=== PATIENT | male | born 1995 | race Caucasian/White ===

== ENCOUNTER → 2017-07-24 | Outpatient (CLI) | payer BC ==
--- NOTE | 2017-07-24 09:21 | RADIOLOGY IMAGING REPORT ---
FACILITY: [facility] - [place] PATIENT NAME: Dylan Price : 1995 MR: [id number] V: [id number] EXAM DATE: ORDERING PHYSICIAN: CHESTER HAYWOOD TECHNOLOGIST: Location: [facility] Patient: Dylan Price : 1995 Visit/Account:[id number] Date of Sevice: 07/24/2017 TESTICULAR ultrasound HISTORY: Varicocele COMPARISON: None FINDINGS: Right testicle: 4.1 x 2.3 x 3.8 cm. Normal echogenicity and vascularity. No testicular mass. Left testicle: 3.6 x 2.0 x 3.1 cm. Normal echogenicity and vascularity. No testicular mass. Epididymides: Unremarkable. Blood flow is unremarkable in each epididymis by color Doppler ultrasound . Hydrocele: None. Varicocele: Left varicocele with veins measuring up to 5-6 mm with increased flow with Valsalva Other findings: None significant IMPRESSION: 1. Left varicocele 2. Normal testicles and epididymis. Report Dictated By: Carloz Hays MD at 07/24/2017 9:02 AM Report E-Signed By: Carloz Hays MD at 07/24/2017 9:17 AM WSN:[id number]
== END ==
LOC: RAD 07:21
PROVIDERS: ATTEND Family Medicine
DX: I86.1 Scrotal varices (principal)
CPT/HCPCS: 36415; 76870; 84403

== ENCOUNTER 2017-08-22 08:35 | Day surgery (SDC) | payer BC ==
[~2017-08-22] VITALS: Ht 182.9 cm; Wt 74.8 kg
--- NOTE | 2017-08-22 08:41 | ER Report ---
History and Physical Time Seen By MD: 08:41 HPI/ROS CHIEF COMPLAINT: Right testicular pain HISTORY OF PRESENT ILLNESS: 22-year-old otherwise healthy male resents with Acute onset of right testicular pain O5 30 history of prior varicocele on the opposite side diagnosed by ultrasound 2 weeks ago. Denies prior operation. Denies prior torsion denies no and they'll clapper deformity. He noted his testicle seems elevated in the right scrotal area and is poking out to the side. He is concerned about a torsion. Severe pain enough to induce nausea at this time. Denies prior STD. States all prior testing has been negative. Denies prior epididymitis. REVIEW OF SYSTEMS: Constitutional: No fever, no chills. Eyes: No discharge. ENT: No sore throat. Cardiovascular: No chest pain, no palpitations. Respiratory: No cough, no shortness of breath. Gastrointestinal: No abdominal pain, no vomiting. Genitourinary: No hematuria. Musculoskeletal: No back pain. Skin: No rashes. Neurological: No headache. Allergies: Coded Allergies: amoxicillin (Verified Allergy, Intermediate, 08/22/17) clavulanic acid (Verified Allergy, Intermediate, 08/22/17) Penicillins (Verified Allergy, Unknown, RASH, 08/22/17) Home Meds No Active Prescriptions or Reported Meds Constitutional Vital Sign - Last 24 Hours 08/22/17 08/22/17 08/22/17 08/22/17 08:42 08:44 08:45 08:55 Temp 97.8 Pulse 69 71 73 Resp 16 B/P (MAP) 143/90 (107) 143/90 Pulse Ox 98 99 O2 Delivery Room Air 08/22/17 09:00 B/P (MAP) 139/90 (106) Physical Exam General Appearance: The patient is alert, has no immediate need for airway protection and no signs of toxicity. Acute distress due to pain Eyes: Pupils equal and round no pallor or injection. ENT, Mouth: Mucous membranes are moist. Respiratory: There are no retractions, lungs are clear to auscultation. Cardiovascular: Regular rate and rhythm. No murmurs gallops or rubs Gastrointestinal: Abdomen is soft and non tender, no masses, bowel sounds normal. : Scrotum contracted right testy tender to palpation posteriorly, horizontal lie appreciable, right spermatic cord appears swollen and tender to palpation anteriorly no discoloration appreciated left testicle normal. No discharge or blood from the meatus. Neurological: Normal Skin: Warm and dry, no rashes. Musculoskeletal: Neck is supple non tender. Extremities are nontender, nonswollen and have full range of motion. No edema DIFFERENTIAL DIAGNOSIS: After history and physical exam differential diagnosis was considered for testicular torsion epididymitis spermatocele varicocele orchitis this is an incomplete list of diagnoses considered Medical Decision Making Data Points Result Diagram: 08/22/17 0858 08/22/17 0858 Laboratory Hematology Test 08/22/17 08:41 08/22/17 08:58 Urine Color Yellow Urine Clarity Clear Urine pH 6.0 pH (4.8-9.5) Urine Specific [place] 1.024 Urine Protein Negative mg/dL (NEGATIVE) Urine Glucose (UA) Negative mg/dL (NEGATIVE) Urine Ketones Trace mg/dL (NEGATIVE) Urine Blood Negative (NEGATIVE) Urine Nitrite Negative (NEGATIVE) Urine Bilirubin Negative (NEGATIVE) Urine Urobilinogen Negative mg/dL (0.2-1.9) Urine Leukocyte Esterase Negative (NEGATIVE) Urine RBC None /HPF (0-2/HPF) Urine WBC <1 /HPF (0-5/HPF) Urine Squamous Epithelial Cells Few /LPF (</=FEW) Urine Bacteria Negative /HPF (NONE-FEW) Urine Mucus Few /HPF (NONE-FEW) Red Blood Count 5.90 M/uL (4.00-5.60) Mean Corpuscular Volume 87.1 fL (80.0-96.0) Mean Corpuscular Hemoglobin 30.0 pg (26.0-33.0) Mean Corpuscular Hemoglobin Concent 34.5 g/dL (32.0-36.0) Red Cell Distribution Width 13.2 % (11.5-14.5) Mean Platelet Volume 8.2 fL (7.2-11.1) Neutrophils (%) (Auto) 79.8 % (39.4-72.5) Lymphocytes (%) (Auto) 14.9 % (17.6-49.6) Monocytes (%) (Auto) 4.7 % (4.1-12.4) Eosinophils (%) (Auto) 0.2 % (0.4-6.7) Basophils (%) (Auto) 0.4 % (0.3-1.4) Nucleated RBC Relative Count (auto) 0.2 /100WBC Neutrophils # (Auto) 7.1 K/uL (2.0-7.4) Lymphocytes # (Auto) 1.3 K/uL (1.3-3.6) Monocytes # (Auto) 0.4 K/uL (0.3-1.0) Eosinophils # (Auto) 0.0 K/uL (0.0-0.5) Basophils # (Auto) 0.0 K/uL (0.0-0.1) Nucleated RBC Absolute Count (auto) 0.02 K/uL Peripheral Blood Smear No Y/N Sodium Level 138 mmol/L (137-145) Potassium Level 3.4 mmol/L (3.5-5.0) Chloride Level 100 mmol/L (98-107) Carbon Dioxide Level 24 mmol/L (22-30) Blood Urea Nitrogen 17 mg/dl (9-21) Creatinine 0.90 mg/dl (0.66-1.25) Glomerular Filtration Rate Calc > 60.0 Random Glucose 95 mg/dl (75-110) Calcium Level 9.7 mg/dl (8.4-10.2) Chemistry Test 08/22/17 08:41 08/22/17 08:58 Urine Color Yellow Urine Clarity Clear Urine pH 6.0 pH (4.8-9.5) Urine Specific [place] 1.024 Urine Protein Negative mg/dL (NEGATIVE) Urine Glucose (UA) Negative mg/dL (NEGATIVE) Urine Ketones Trace mg/dL (NEGATIVE) Urine Blood Negative (NEGATIVE) Urine Nitrite Negative (NEGATIVE) Urine Bilirubin Negative (NEGATIVE) Urine Urobilinogen Negative mg/dL (0.2-1.9) Urine Leukocyte Esterase Negative (NEGATIVE) Urine RBC None /HPF (0-2/HPF) Urine WBC <1 /HPF (0-5/HPF) Urine Squamous Epithelial Cells Few /LPF (</=FEW) Urine Bacteria Negative /HPF (NONE-FEW) Urine Mucus Few /HPF (NONE-FEW) White Blood Count 8.9 k/uL (4.5-11.0) Red Blood Count 5.90 M/uL (4.00-5.60) Hemoglobin 17.7 g/dL (14.0-18.0) Hematocrit 51.4 % (42.0-52.0) Mean Corpuscular Volume 87.1 fL (80.0-96.0) Mean Corpuscular Hemoglobin 30.0 pg (26.0-33.0) Mean Corpuscular Hemoglobin Concent 34.5 g/dL (32.0-36.0) Red Cell Distribution Width 13.2 % (11.5-14.5) Platelet Count 235 K/uL (150-450) Mean Platelet Volume 8.2 fL (7.2-11.1) Neutrophils (%) (Auto) 79.8 % (39.4-72.5) Lymphocytes (%) (Auto) 14.9 % (17.6-49.6) Monocytes (%) (Auto) 4.7 % (4.1-12.4) Eosinophils (%) (Auto) 0.2 % (0.4-6.7) Basophils (%) (Auto) 0.4 % (0.3-1.4) Nucleated RBC Relative Count (auto) 0.2 /100WBC Neutrophils # (Auto) 7.1 K/uL (2.0-7.4) Lymphocytes # (Auto) 1.3 K/uL (1.3-3.6) Monocytes # (Auto) 0.4 K/uL (0.3-1.0) Eosinophils # (Auto) 0.0 K/uL (0.0-0.5) Basophils # (Auto) 0.0 K/uL (0.0-0.1) Nucleated RBC Absolute Count (auto) 0.02 K/uL Peripheral Blood Smear No Y/N Glomerular Filtration Rate Calc > 60.0 Calcium Level 9.7 mg/dl (8.4-10.2) Urinalysis Test 08/22/17 08:41 Urine Color Yellow Urine Clarity Clear Urine pH 6.0 pH (4.8-9.5) Urine Specific [place] 1.024 Urine Protein Negative mg/dL (NEGATIVE) Urine Glucose (UA) Negative mg/dL (NEGATIVE) Urine Ketones Trace mg/dL (NEGATIVE) Urine Blood Negative (NEGATIVE) Urine Nitrite Negative (NEGATIVE) Urine Bilirubin Negative (NEGATIVE) Urine Urobilinogen Negative mg/dL (0.2-1.9) Urine Leukocyte Esterase Negative (NEGATIVE) Urine RBC None /HPF (0-2/HPF) Urine WBC <1 /HPF (0-5/HPF) Urine Squamous Epithelial Cells Few /LPF (</=FEW) Urine Bacteria Negative /HPF (NONE-FEW) Urine Mucus Few /HPF (NONE-FEW) ED Course/Re-evaluation ED Course 08/22/2017 9:13:[address] Wilver Corrigan, states he is not on- call today checked out last night and recommends we call Dr. Carrasquillo. Dr. Carrasquillo has been paged. Case discussed with Dr. Carrasquillo who recommends manual detorsion ultrasound and plans operation to explore. Procedure 08/22/2017 9:42:18 am manual detorsion right testicular torsion Time out: Patient verified site verified with nurse and [facility] therapists present monitor pulse ox suction bag valve mask set up in preparation Analgesic: Fentanyl 50 mcg IV push for a total of 100 mcg Sedation: Versed 3 mg, followed by 2 mg for a total of 5 mg Technique: Open book method applied to right testicle with improvement in lie Tolerated: Well Complications: None Pulse ox 96% throughout entire procedure. Nursing and respiratory therapists remained with patient until fully awake and talking Decision to Disposition Date: Aug 22, 2017 Decision to Disposition Time: 09:45 Depart Departure Latest Vital Signs Vital Signs Date Time Temp Pulse Resp B/P (MAP) Pulse Ox O2 Delivery O2 Flow Rate FiO2 08/22/17 09:00 139/90 (106) 08/22/17 08:55 73 08/22/17 08:45 99 08/22/17 08:44 97.8 16 Room Air Impression: Primary Impression: Right testicular torsion Condition: Improved Disposition: ADMIT FROM ER TO OR New Scripts No Active Prescriptions or Reported Meds CODY VANESSA MD Aug 22, 2017 08:41
[2017-08-22] MEDS ORDERED: fentaNYL CITR 100 MCG/2 ML AMP IVP ONE (08:55)
[2017-08-22] MEDS ORDERED: ONDANSETRON 4 MG ODT TABDP SL ONE (08:55)
[2017-08-22] MEDS ORDERED: MIDAZOLAM 2 MG/2 ML VIAL IVP ONE (09:25)
[2017-08-22 09:29] LABS: PLATELET COUNT, AUTOMATED 235 K/uL (150-450)
[2017-08-22] MEDS: fentaNYL CITR 100 MCG/2 ML AMP ONE (09:31)
[2017-08-22] MEDS ORDERED: MIDAZOLAM 2 MG/2 ML VIAL ONE (09:36)
[2017-08-22] MEDS ORDERED: PROPOFOL EMUL(*) 10MG/ML 20 ML 20 ML ONE (09:40)
[2017-08-22] MEDS ORDERED: LIDOCAINE MPF 1% 5 ML VIAL ONE (09:40)
[2017-08-22] MEDS ORDERED: METOCLOPRAMIDE 10 MG/2 ML SDV ONE (09:40)
[2017-08-22] MEDS ORDERED: ONDANSETRON 4 MG/2 ML VIAL ONE (09:40)
[2017-08-22] MEDS ORDERED: DEXAMETHASONE SOD 4 MG/ML VIAL ONE (09:40)
[2017-08-22] MEDS ORDERED: fentaNYL CITR 100 MCG/2 ML AMP ONE (09:44)
[2017-08-22] MEDS ORDERED: ROCURONIUM BROM 10 MG/ML 10 ML ONE (09:45)
[2017-08-22] MEDS ORDERED: LEVOFLOXACIN/D5W*500 MG/100 ML 100 ML IVPB ONE (10:04)
[2017-08-22] MEDS ORDERED: NORMOSOL R SOLN(*) 1000 ML BAG 1,000 ML IV ONE (10:26)
--- NOTE | 2017-08-22 10:42 | RADIOLOGY IMAGING REPORT ---
FACILITY: [facility] - [place] PATIENT NAME: Dylan Price : 1995 MR: [id number] V: [id number] EXAM DATE: ORDERING PHYSICIAN: CODY VANESSA TECHNOLOGIST: Location: [facility] - [place] Patient: Dylan Price : 1995 Visit/Account:[id number] Date of Sevice: 08/22/2017 EXAMINATION: Scrotal ultrasound with duplex Doppler evaluation 08/22/2017 8:55 AM HISTORY: Right-sided torsion. Per note from the technologist, patient status post fall had been twis zandra to return flow. COMPARISON STUDIES: 07/24/2017 FINDINGS: Testes: Right: 4.1 x 2.4 x 3.3 cm, Left: 3.8 x 1.8 x 2.8 cm negative Symmetric blood flow documented by color Doppler ultrasound Arterial blood flow within each testicle by duplex Doppler ultrasound. Venous blood flow is als o documented. Epididymides: negative Blood flow is appropriate in each epididymis by color Doppler ultrasound. Hydrocele: Small hydrocele on the right Varicocele: Left varicocele. IMPRESSION: 1. Normal flow is demonstrated in both testicles at the time of the study. 2. Small right hydrocele. 3. Left varicocele. Report Dictated By: Marlo Boles MD at 08/22/2017 10:34 AM Report E-Signed By: Marlo Boles MD at 08/22/2017 10:37 AM WSN:[id number]
[2017-08-22] MEDS ORDERED: ROPIVACAINE 0.2% 20 ML VIAL ONE ×2 (10:44→11:22)
[2017-08-22] MEDS ORDERED: KETOROLAC 30 MG/ML VIAL ONE (11:28)
[2017-08-22] MEDS ORDERED: SUGAMMADEX SOD 200 MG/2 ML SDV ONE (11:32)
[2017-08-22] MEDS ORDERED: DOCU-416 PO (12:07)
[2017-08-22] MEDS ORDERED: HYDR-4309 PO (12:07)
[2017-08-22] MEDS ORDERED: IBUP600T22 PO (12:08)
[2017-08-22 12:36] VITALS: BP 130/80
[2017-08-22] MEDS ORDERED: APAP/HYDROCODONE 325/5 TAB ONE (12:36)
[2017-08-22 12:43] VITALS: BP 111/76
[2017-08-22 12:45] VITALS: BP 124/87
--- NOTE | 2017-08-22 13:39 | HISTORY AND PHYSICAL ---
DATE OF ADMISSION: August 22, 2017 CHIEF COMPLAINT Right testicular pain. HISTORY OF PRESENT ILLNESS The patient is a 22-year-old white male who presented to the Emergency Room with sudden onset of right testicular pain and swelling which began at approximately 5:30 this morning. He presented to the Emergency Room at approximately 8:30. He was evaluated there by the emergency room physician, who noted a transverse lie, high-riding right testis with significant tenderness. After IV Versed, the emergency room physician was able to rotate the testis out laterally with significant improvement in the patient's pain and discomfort. The patient states that upon evaluation, his pain was significantly better. He denied any irritated voiding symptoms, urethral discharge, abdominal or flank pain. Of note, the patient was seen in the Urology Clinic approximately 10 days ago for evaluation of a left varicocele which was diagnosed by ultrasound on the 24 of July. At that time, his urinalysis was normal. His testicular exam was also normal bilaterally except for a grade 2 varicocele on the left. He was leaning toward repair of this varicocele on the left in the near future. Of note, he has had some similar pain on the left side in the past that was not really typical of torsion type pain, but more of an achy varicocele in nature. A urinalysis in the Emergency Room was performed which was normal, and a testicular ultrasound performed following detorsion was also unremarkable. Given the patient's history, he is now being brought to the operating room for planned scrotal exploration with possible orchiopexy. PAST MEDICAL HISTORY Left varicocele. PAST SURGICAL HISTORY 1. Tonsillectomy. 2. [place] teeth extraction. CURRENT MEDICINES None. ALLERGIES PENICILLIN, AMOXICILLIN, and AUGMENTIN. FAMILY HISTORY Noncontributory. SOCIAL HISTORY The patient is a student at the [employer]. He is originally from [place], [place]. REVIEW OF SYSTEMS The patient denies bleeding disorder, chest pain, productive cough, fever, chills, nausea, vomiting, hematuria, or kidney stones. PHYSICAL EXAMINATION GENERAL: The patient is a well-developed, well-nourished, white male in no acute distress. HEENT: Normocephalic, atraumatic. CHEST: Clear to auscultation bilaterally. CARDIOVASCULAR: Regular rate and rhythm. ABDOMEN: Soft, nontender. No masses are palpated. GENITOURINARY: Normal-appearing, circumcised penis. His scrotum is of normal appearance. His testicular exam reveals a normal-appearing left testis with normal lie with a grade 2 varicocele. The right testis is mildly tender to deep palpation, but the epididymis appears normal and is easily palpated separate from the testis. He has a decreased cremasteric reflex bilaterally. He has no inguinal hernia. EXTREMITIES: Without clubbing, cyanosis, or edema. NEUROLOGIC: Nonfocal. IMPRESSION A 22-year-old white male with right testicular torsion, status post detorsion by emergency room physician. I have had a discussion with both Dylan and his mother by telephone, and I informed her of the above situation. Both Dylan and his mother understand that he likely has a complete detorsion given his symptomatic improvement and physical exam. However, there still could be some partial torsion on the testis resulting in a testicular vascular compromise. PLAN We will perform scrotal exploration with bilateral orchiopexy. Both Dylan and his mother have been informed of possible testicular devitalization with need for orchiectomy. Also has been discussed his possible decreased fertility and/ or hypogonadism with loss or damage to one testis. CLAY
--- NOTE | 2017-08-22 14:44 | OPERATIVE REPORT 1 ---
EVENT DATE: August 22, 2017 SURGEON: Rao Carrasquillo MD ANESTHESIOLOGIST: To Chavira MD ANESTHESIA: General anesthetic. PREOPERATIVE DIAGNOSIS Right torsion/detorsion. POSTOPERATIVE DIAGNOSIS Right torsion/detorsion. PROCEDURE PERFORMED Scrotal exploration with bilateral orchiopexy. ESTIMATED BLOOD LOSS 5 mL INTRAVENOUS FLUIDS Crystalloid. DRAINS None. COMPLICATIONS None. CONDITION The patient was taken to the recovery room awake and in stable condition. STATEMENT OF MEDICAL NECESSITY The patient is a 22-year-old white male with a history of left varicocele with intermittent testicular pain who presented to the Emergency Room with sudden onset of right testicular pain beginning at 5:30 this morning with swelling. He was evaluated in the Emergency Room and felt to have a right torsion. The emergency room physician detorsed the right testis. At the time of my physical exam, the patient was still mildly tender; however, the testis was in a normal lie. Ultrasound revealed a normal testis without masses. Given his history of intermittent left testis pain as well as history more consistent with a torsion today, he is now being brought to the operating room for planned scrotal exploration with orchiopexy. I have discussed the risks and benefits with both the patient and his mother by telephone today including possible loss of testis , decreased fertility, and/or hypogonadism in the future. DESCRIPTION OF OPERATION PERFORMED The patient was brought to the operating room. After general anesthetic was obtained, he was placed supine on the operating room table. He was prepped and draped sterilely. A midline scrotal incision was performed with the 15 blade knife and taken down through the dartos with electrocautery. The right hemiscrotum was then entered to deliver the testis into the operative field. The tunica vaginalis was then opened. There was a moderate amount of dark straw -colored fluid surrounding the testis with a volume of approximately 15 mL. 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 The testis itself was viable. There were no other anomalies associated. At this point, the appendix testis was removed with fulguration. The redundant tunica vaginalis was removed with electrocautery surrounding the testis and then plicated on the posterior aspect of the testis. At this point, a three-point orchiopexy was performed using 4-0 Prolene stitches at the 3, 6, and 9 o'clock positions, placed into the dartos, and then through the tunica albuginea. Antibiotic solution was then used to irrigate the wound. A cord block was performed with 0.25% ropivacaine. Again, the testis was evaluated to ensure viability and making sure the vas and vessels were not twisted. It was placed back in its normal anatomical position and the orchiopexy stitches tied. The right hemiscrotum incision through the dartos was closed with a running 3-0 chromic. Following this, the left side was done in a similar manner. The testis was delivered through the midline incision. The vaginalis was opened, the redundant vaginalis removed, and the epididymis testis fulgurated. This testis was also completely viable with no anomalies except what appeared to be a mazariegos clapper deformity. Again, an orchiopexy stitch was performed with 4-0 Prolene stitches at 3, 6, and 9 o' clock positions through the dartos and the tunica albuginea, again making sure the vas and vessels were not twisted. Antibiotic solution was irrigated in this incision. The testis was placed in the normal anatomical position and the orchiopexy stitches tied after a cord block was performed on this side as well with 0.25% ropivacaine. The dartos on the left incision was also closed with a running 3-0 chromic stitch. Following this, antibiotic solution was used to irrigate the incision. The incision was closed with a deep layer of 3-0 chromic and a skin layer of interrupted 4-0 chromic stitches. Ropivacaine 0.25 % was given along the incision edge, and skin adhesive was placed along the skin edge at the conclusion of the procedure. A sterile fluff dressing with scrotal support was applied. The patient was awakened in the operating room and taken to the recovery area in stable condition. PLAN The plan will be to have the patient discharge home today. He is to continue his scrotal support with ice for 36 hours. We will see him in the Urologic Clinic in four to six weeks. He is being discharged home on Ashley, Colace, and Motrin. CLAY
== END 2017-08-22 12:24 | disposition home or self-care (01) ==
LOC: ER 08:44 → OR 09:23
PROVIDERS: ATTEND Urology
DX: N44.00 Torsion of testis, unspecified (principal)
CPT/HCPCS: 54640; 76870; 81001; 85025; 87088; 87491; 87591; 96365; 96375; 99285; J1100; J1885; J1956; J2001; J2250; J2405; J2704; J2765; J2795; J3010; S0119; 82310; 82374; 82435; 82565; 82947; 84132; 84295; 84520